=== PATIENT | female | born 1975 | race Two or more races ===

== ENCOUNTER 2021-04-15 16:11 | Emergency (ER) | payer MEDICAID ==
[~2021-04-15] VITALS: Ht 162.6 cm; Wt 92.1 kg
[2021-04-15 19:55] VITALS: BP 175/79
== END 2021-04-15 23:06 | disposition home or self-care (01) ==
LOC: ER 16:11
DX: M75.32 Calcific tendinitis of left shoulder (principal)
CPT/HCPCS: 73030; 93005

== ENCOUNTER 2021-07-10 20:48 | Emergency (ER) | payer MEDICAID ==
[~2021-07-10] VITALS: Ht 160 cm; Wt 93.0 kg
[2021-07-11] MEDS ORDERED: HYDR-4902 PO (00:06)
[2021-07-11] MEDS ORDERED: HYDROcodone-ACET 5/325MG TAB ONE (00:16)
[2021-07-11] MEDS ORDERED: HYDROcodone-ACET 5/325MG TAB PO ONE (00:30)
[2021-07-11 01:36] VITALS: BP 140/85
== END 2021-07-11 01:37 | disposition home or self-care (01) ==
LOC: ER 20:49
DX: S13.101A Dislocation of unspecified cervical vertebrae, initial encounter (principal); M43.8X9 Other specified deforming dorsopathies, site unspecified; V43.52XA Car driver injured in collision with other type car in traffic accident, initial encounter; Y93.89 Activity, other specified; Y92.410 Unspecified street and highway as the place of occurrence of the external cause; Y99.8 Other external cause status
CPT/HCPCS: 70450; 71046; 72125; 73080

== ENCOUNTER 2024-05-10 16:24 | Inpatient (IN) | payer MEDICAID ==
[~2024-05-10] VITALS: Ht 157.5 cm; Wt 90.2 kg
--- NOTE | 2024-05-10 16:51 | ED.PDOC ---
History of Present Illness HPI Comments 49 y/o F, with a Hx of HTN, morbid obesity, and C-sections and a FMHx of DM and liver disease, presents with c/o periumbilical abdominal and mid-lower back pain, nausea, vomiting, and chills, today. Patient reports unprovoked onset of symptoms, last night, that worsened, suddenly, this morning. Patient comments on having no prior Hx of symptoms in the past and pain being a 6-7/10 and radiating towards her back from her abdomen. Patient also endorses having eating anything, due to symptoms. She reports no additional relevant or pertinent Hx along with recent stress, injuries, sick contact, spoiled food, travel, or substance use/exposure. Patient denies having any hematemesis, diarrhea, urinary symptoms, fever, chills or other associated symptoms or modifiers at this time. 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 THERAPIST TECHNICIAN Hx Family History Family History: Reviewed,noncontributory to illness Social History Smoker: Non-Smoker Alcohol: Denies ETOH Use Drugs: Denies Drug Use Lives In: Home Constitutional: reports: chills; denies: diaphoresis, fatigue, fever, malaise, sweats, weakness, others EENTM: denies: blurred vision, double vision, ear bleeding, ear discharge, ear drainage, ear pain, ear ringing, eye pain, eye redness, hearing loss, mouth pain, mouth swelling, nasal discharge, nose bleeding, nose congestion, nose pain, photophobia, tearing, throat pain, throat swelling, voice changes, others Respiratory: denies: cough, hemoptysis, orthopnea, SOB at rest, shortness of breath, SOB with excertion, stridor, wheezing, others Cardiovascular: denies: chest pain, dizzy spells, diaphoresis, Dyspnea on exertion, edema, irregular heart beat, left arm pain, lightheadedness, palpitations, PND, syncope, others Gastrointestinal: reports: abdominal pain, nausea, vomiting; denies: abdomen distended, blood streaked bowels, constipated, diarrhea, dysphagia, difficulty swallowing, hematemesis, melena, poor appetite, poor fluid intake, rectal bleeding, rectal pain, others Genitourinary: denies: abnormal vagina bleeding, burning, dyspareunia, dysuria, flank pain, frequency, hematuria, incontinence, pain, , vagina discharge, urgency, others Neurological: denies: dizziness, fainting, headache, left sided numbness, left sided weakness, numbness, paresthesia, pre-existing deficit, right sided numbne ss, right sided weakness, seizure, speech problems, tingling, tremors, weakness, others Musculoskeletal: reports: back pain; denies: gout, joint pain, joint swelling, muscle pain, muscle stiffness, neck pain, others Integumetry: denies: bruises, change in color, change in hair/nails, dryness, laceration, lesions, lumps, rash, wounds, others Allergic/Immunocompromised: denies: Difficulty Healing, Frequent Infections, Hives, Itching, others Hematologic/Lymphatic: denies: anemia, blood clots, easy bleeding, easy bruising, swollen glands, others Endocrine: denies: excessive hunger, excessive sweating, excessive thirst, excessive urination, flushing, intolerance to cold, intolerance to heat, unexplained weight gain, unexplained weight loss, others Psychiatric: denies: anxiety, bipolar disorder, depression, hopeless, panic disorder, schizophrenia, sleepless, suicidal, others All Other Systems: Reviewed and Negative Physical Exam General Appearance: Moderate Distress, Obese HEENT: Normal ENT Inspection, Pharynx Normal, TMs Normal Neck: Full Range of Motion, Non-Tender, Normal, Normal Inspection Respiratory: Chest Non-Tender, Lungs Clear, No Accessory Muscle Use, No Respiratory Distress, Normal Breath Sounds Cardiovascular: No Edema, No JVD, No Murmur, No Gallop, Normal Peripheral Pulses, Regular Rate/Rhythm Breast Exam: Deferred Gastrointestinal: Epigastric, No Organomegaly, No Pulsatile Mass, Normal Bowel Sounds, Soft, Tenderness Genitalia: Deferred Pelvic: Deferred Rectal: Deferred Extremities: No calf tenderness, Normal capillary refill, Normal inspection, Normal range of motion, Non-tender, No pedal edema Musculoskeletal : Apperance: Normal Neurologic: Alert, technical service rep II-XII nml as Tested, No Motor Deficits, Normal Affect, Normal Mood, No Sensory Deficits Cerebellar Function: Normal Reflexes: Normal Skin: Dry, Normal Color, Warm Lymphatic: No Adenopathy Was a procedure done? Was a procedure done?: No Differential Dx Considerations may include: Gastritis, gastroenteritis, AAA, SBO, spoiled food, viral syndrome, acute abdomen X-Ray, Labs, Meds, VS Vital Signs Date Time Temp Pulse Resp B/P (MAP) Pulse Ox O2 Delivery O2 Flow Rate FiO2 05/10/24 16:35 99.2 115 18 144/79 (100) 95 Lab Test 05/10/24 16:41 Range/Units Urine Color Yellow Yellow Urine Clarity Clear Clear Urine pH 5.5 5.0-9.0 Urine Specific [place] 1.032 1.001-1.035 Urine Protein Trace H Negative Urine Ketones Negative Negative Urine Blood Negative Negative /uL Urine Nitrite Negative Negative Urine Bilirubin Negative Negative Urine Urobilinogen Normal Negative mg/dL Urine Leukocyte Esterase 1+ Negative /uL Urine RBC 1 0 - 4 /hpf Urine WBC 3 0 - 5 /hpf Urine Squamous Epithelial Cells Few <5 /hpf Urine Bacteria None seen None Seen /hpf Urine Mucus Few None Seen Urine Glucose Normal Normal mg/dL The urine test is positive for a slight UTI The patient was pending lab work as well as ultrasound We feel that the patient may have gallstones The patient was being signed out to Dr. Terry Images Reviewed?: Images reviewed and evaluated by me Time of 1ST Reevaluation: 17:15 Reevaluation 1ST: Unchanged Patient Education/Counseling: Diagnosis, Treatment, Prognosis Family Education/Counseling: No Family Present Departure 1 Departure Time of Disposition: 17:47 Impression: Primary Impression: Intractable abdominal pain Disposition: 30 STILL A PATIENT Condition: Fair Critical Care Note Critical Care Time?: No Stability Stability form required: No Heart Score Heart Score: Heart Score Response (Comments) Value History N/A 0 EKG N/A 0 Age N/A 0 Risk Factors N/A 0 Troponin N/A 0 Total 0 I personally scribed for AMY CARRIZALES MD ([email or web address]) on 05/10/24 at 16:51. Electronically submitted by Con Jones [email or web address]). AMY CARRIZALES MD May 10, 2024 16:51
[2024-05-10 17:01] LABS: Urine Bacteria None Seen /hpf (None Seen)
[2024-05-10 17:07] LABS: Urine Blood Negative /uL (Negative); Urine Clarity Clear (Clear); Urine Color Yellow (Yellow); Urine Mucus FEW (None Seen); Urine Protein, UAD TRACE (Negative); Urine Specific Gravity 1.032 (1.001-1.035); Urine Urobilinogen Normal (Negative); Urine WBC 3 /hpf (0 - 5); Urine pH 5.5 (5.0-9.0)
[2024-05-10 18:23] LABS: Basophils # (auto) 0 10 ^3/uL (0-0.2); Eosinophils # (auto) 0.1 10 ^3/uL (0-0.8); Hemoglobin 13.3 g/dL (12.2-16.2); Monocytes # (auto) 0.3 10 ^3/uL (0-1.3); Monocytes % (auto) 3.8 % (0.0-12.0); White Blood Cell 7.6 10^3/uL (4.4-10.8)
[2024-05-10 18:26] LABS: Basophils % (auto) 0.1 % (0.0-2.0); Hematocrit 39.3 % (36.0-46.0); Lymphocytes % (auto) 13.5 % (10.0-50.0); Mean Corpuscular Hemoglobin 27.5 pg (28.0-32.0); Mean Corpuscular Hgb Conc. 33.9 g/dL (32.0-36.0); Mean Corpuscular Volume 81.2 fL (80.0-100.0); Neutrophils # (auto) 6.2 10 ^3/uL (1.6-8.6); Neutrophils % (auto) 81.6 % (37.0-80.0); Platelet Count (auto) 248 10^3/uL (140-450); Red Blood Cells 4.84 10^6/uL (4.0-5.20); Red Cell Distribution Width 14.6 % (11.8-14.3)
--- NOTE | 2024-05-10 18:26 | DVH ---
EXAM: US GALLBLADDER CLINICAL HISTORY: pain TECHNIQUE: Grayscale and limited color flow doppler ultrasound of the right upper quadrant is perfor med. COMPARISON: None Findings: Liver measures 15.5 cm in length with increased echotexture and contour. No evidence of focal hepatic lesions or intra- or extrahepatic ductal dilatation. Focal fatty sparing adjacent to the gallbladder fossa. Common bile duct measures 0.4 cm in diameter. Normal hepatopedal flow noted within the portal vein. N o perihepatic free fluid is noted. Gallbladder appears within normal limits with gallbladder wall thickness measuring 0.2 cm. There are shadowing calculi. No evidence of biliary sludge or pericholecystic fluid. Negative sonographic Jared y's sign. Pancreas not well-visualized due to overlying bowel gas. Right kidney measures 9.2 cm with normal contours, echotexture and cortical thickness. No evidence of hydronephrosis, calculi, cystic or solid renal lesions. Partially visualized inferior vena cava unremarkable. Impression: 1. No evidence of acute right upper quadrant abnormalities. 2. Hepatic steatosis with focal fatty sparing. 3. Cholelithiasis without evidence of acute cholecystitis.
[2024-05-10 19:33] LABS: Alanine Aminotransferase 30 U/L (7-40); Albumin 4.8 g/dL (3.2-4.8); Alkaline Phosphatase 80 U/L (46-116); Anion Gap 13 (5-15); Aspartate Aminotransferase 20 U/L (13-40); BUN/Creatinine Ratio 20.5 (10.0-20.0); Bilirubin, Total 1.5 mg/dL (0.2-1.0); Blood Urea Nitrogen 15 mg/dL (9-23); Calcium 9.7 mg/dL (8.7-10.4); Carbon Dioxide 22 mmol/L (20-31); Chloride 107 mmol/L (98-107); Glucose 106 mg/dL (74-106); Lipase 31 U/L (12-53); Potassium 3.3 mmol/L (3.5-5.1); Sodium 142 mmol/L (136-145); Total Protein 7.2 g/dL (5.7-8.2)
[2024-05-10] MEDS: IOHEXOL 300 MG/ML 100ML BOTTLE IJ ONE (23:43)
[2024-05-10] MEDS: POTASSIUM EFFERVESENT TAB 25 MEQ PO ONE (23:56)
[2024-05-10] MEDS: ONDANSETRON HCL 4 MG/2 ML VIAL IV ONE (23:56)
[2024-05-10] MEDS: MORPHINE SULFATE INJ 2 MG/ml SYRG IV ONE (23:56)
[2024-05-11] VITALS (9 sets, daily range): BP systolic 107–132; BP diastolic 47–80; PULSE 60–79; RESP 16–18; TEMP 97.7–98.6; O2SAT 94–99
--- NOTE | 2024-05-11 01:12 | DVH ---
CLINICAL HISTORY: abdominal pain, back pain, elevated bilirubin TECHNIQUE: CT of the abdomen and pelvis was performed with intravenous contrast. 100 mL Omnipaque 300 injected. This exam was performed according to our departmental dose optimization program. Up-to-citlalli e CT equipment and radiation dose reduction techniques are utilized as appropriate. CTDIVol: [CTDIvol] mGy DLP: 1379.47 mGy-cm WID: COMPARISON: None FINDINGS: Lower Thorax: Small sliding-type hiatal hernia. Normal-sized heart. The lung bases are clear Liver and Biliary system: Normal-sized liver. There is diffuse hepatic steatosis. No discrete hepat ic lesion. Cholelithiasis. No biliary ductal dilatation the major portal veins are patent Spleen: Unremarkable. Adrenal Glands and Kidneys: Unremarkable. Pancreas and Retroperitoneum: Unremarkable. Aorta and Major Vessels: Aortoiliac vessels are patent and normal caliber containing mild calcified a therosclerotic plaque Bowel, Mesentery and Peritoneal space: Small and large bowel loops are normal in caliber. There are f luid containing small and large bowel loops. There is no free air or fluid collection. Mild wall thic kening of the large bowel most pronounced proximally. There is no free air or fluid collection. Yue l appendix. Pelvis: Unremarkable. Abdominal wall and Osseous Structures: Small fat containing umbilical hernia. There is no destructive osseous lesion multilevel lower thoracic and lumbar spondylosis. No destructive osseous lesion. IMPRESSION: 1. Mild wall thickening of the large bowel most pronounced proximally which could reflect infectious or inflammatory colitis. 2. Fluid-filled small and large bowel loops which may be physiologic or related to enterocolitis 3. Cholelithiasis 4. Small hiatal hernia. 5. Hepatic steatosis
[2024-05-11] MEDS ORDERED: ACETAMINOPHEN 325 MG TAB PO PRN (01:45)
[2024-05-11] MEDS ORDERED: MORPHINE SULFATE INJ 2 MG/ml SYRG IV PRN (01:45)
--- NOTE | 2024-05-11 01:46 | DVHHP2 ---
Admitting Diagnosis: Acute colitis, abdominal pain History of Present Illness History Source: Patient Exam Limitations: No limitations HPI Mrs. Kellie Silevr is a 49 year old female,with a history of hypertension, morbid obesity, and C-sections and a FMHx of DM and liver disease, presents with a chief complaint of generalized abdominal pain radiating to mid- lower back pain, with associated nausea, vomiting, and chills. Patient reports her symptoms with onset x 3 days ago with diarrhea. Patient denies fevers, chills, melena, hematochezia. Patient admitted for further evaluation. Home Meds Reported Medications Hydrochlorothiazide (Hydrochlorothiazide) 12.5 Mg Tab, 1 TAB PO DAILY 05/11/24 Past Medical History Cardiac: HTN Pulmonary: No pertinent Hx Central Nervous System: No pertinent Hx GI: No pertinent Hx Hemotology/Oncology: No pertinent Hx Hepatobiliary: No pertinent Hx Psychiatric: No pertinent Hx Musculoskeletal: No pertinent Hx Rheumotologic: No pertinent Hx Infectious Disease: No peritnent Hx ENT: No pertinent Hx Renal/: No pertinent Hx Endocrine: No pertinent Hx Dermatology: No pertinent Hx Past Surgical History: Alocohol: None Drugs: None Lives with: With family Domestic Violence: Neg Review of Systems Constitutional: No symptom reported Ears, Nose, & Throat: No symptom reported Eyes: No symptom reported Pulmonary/Respiratory: No symptom reported Cardiovascular: No symptom reported Gastrointestinal: Abdominal Pain Genitourinary: No symptom reported Musculoskeletal: No symptom reported Skin: No symptom reported Psychiatric: No symptom reported Endocrine: No symptom reported Hemotologic/Lymphatic: No symptom reported H&P Exam Vital Signs Vital Signs Date Time Temp Pulse Resp B/P (MAP) Pulse Ox O2 Delivery O2 Flow Rate FiO2 05/10/24 23:56 78 18 105/75 05/10/24 16:35 99.2 95 General Appeara: Well developed, Well nourished, Normal Appearance Head Exam: Normal inspection Neck Exam: Normal inspection, Non-tender, Normal alignment Eye Exam: bilateral eye Normal inspection, bilateral eye PERRL, bilateral eye EOMI Ear Exam: bilateral ear Auricle normal Nasal Exam: Normal inspection Mouth: Normal Inspection Pulmonary/Respiratory: Normal inspection, Normal breath sounds, Chest non-tender, Lungs clear Cardiovascular/Chest: Normal inspection, Regular rate, Normal Rhythm Peripheral Pulses: 2+ dorsalis pedis (R), 2+ dorsalis pedis (L), 2+ Radial (R), 2+ Radial (L) Abdominal Exam: Normal bowel sounds, Soft, No tenderness Abdominal Pain Onset Location: Generalized abdomen Rectal Exam: Deferred Pelvic Exam: Not done 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: Normal hearing, Normal speech, PERRL Motor/Sensory: Normal sensory function, Normal motor function Neuro/Mental St: Alert, Oriented Appearance: Appropriate appearance, Appropriate insight Eye contact/ Speech: Cooperative, Good eye contact, Normal speech Thoughts/Psych: Normal thought pattern Skin Exam: Normal color, Warm/dry Labs/Xrays Labs Test 05/10/24 17:47 05/10/24 16:41 Range/Units White Blood Count 7.6 4.4-10.8 10^3/uL Red Blood Count 4.84 4.0-5.20 10^6/uL Hemoglobin 13.3 12.2-16.2 g/dL Hematocrit 39.3 36.0-46.0 % Mean Corpuscular Volume 81.2 80.0-100.0 fL Mean Corpuscular Hemoglobin 27.5 L 28.0-32.0 pg Mean Corpuscular Hemoglobin Concent 33.9 32.0-36.0 g/dL Red Cell Distribution Width 14.6 H 11.8-14.3 % Platelet Count 248 140-450 10^3/uL Mean Platelet Volume 6.8 L 6.9-10.8 fL Neutrophils (%) (Auto) 81.6 H 37.0-80.0 % Lymphocytes (%) (Auto) 13.5 10.0-50.0 % Monocytes (%) (Auto) 3.8 0.0-12.0 % Eosinophils (%) (Auto) 1.0 0.0-7.0 % Basophils (%) (Auto) 0.1 0.0-2.0 % Neutrophils # (Auto) 6.2 1.6-8.6 10 ^3/uL Lymphocytes # (Auto) 1.0 0.4-5.4 10 ^3/uL Monocytes # (Auto) 0.3 0-1.3 10 ^3/uL Eosinophils # (Auto) 0.1 0-0.8 10 ^3/uL Basophils # (Auto) 0 0-0.2 10 ^3/uL Nucleated Red Blood Cells 0.0 % Sodium Level 142 136-145 mmol/L Potassium Level 3.3 L 3.5-5.1 mmol/L Chloride Level 107 98-107 mmol/L Carbon Dioxide Level 22 20-31 mmol/L Anion Gap 13 5-15 Blood Urea Nitrogen 15 9-23 mg/dL Creatinine 0.73 0.550-1.02 mg/dL Glomerular Filtration Rate Calc 100 >90 mL/min BUN/Creatinine Ratio 20.5 H 10.0-20.0 Serum Glucose 106 74-106 mg/dL Calcium Level 9.7 8.7-10.4 mg/dL Total Bilirubin 1.5 H 0.2-1.0 mg/dL Aspartate Amino Transferase (AST) 20 13-40 U/L Alanine Aminotransferase (ALT) 30 7-40 U/L Alkaline Phosphatase 80 46-116 U/L Total Protein 7.2 5.7-8.2 g/dL Albumin 4.8 3.2-4.8 g/dL Lipase 31 12-53 U/L Urine Color Yellow Yellow Urine Clarity Clear Clear Urine pH 5.5 5.0-9.0 Urine Specific [place] 1.032 1.001-1.035 Urine Protein Trace H Negative Urine Ketones Negative Negative Urine Blood Negative Negative /uL Urine Nitrite Negative Negative Urine Bilirubin Negative Negative Urine Urobilinogen Normal Negative mg/dL Urine Leukocyte Esterase 1+ Negative /uL Urine RBC 1 0 - 4 /hpf Urine WBC 3 0 - 5 /hpf Urine Squamous Epithelial Cells Few <5 /hpf Urine Bacteria None seen None Seen /hpf Urine Mucus Few None Seen Urine Glucose Normal Normal mg/dL Assessment/Plan Problem List: (1) Acute colitis (2) Intractable abdominal pain Plan 49 yo female with known history of hypertension, morbid obesity, c section presents with abdominal pain, nausea, vomiting. Patient found to have 1. acute enterocolitis 2. intractable abdominal pain Admit Med Surg -GI consultation , clear liquid diet -IV antibiotic Flagyl, Levaquin -GI ppx Protonix -IV fluids NS -Analgesics as needed/antiemetics as needed Discussed all above with patient who verbalizes agreement and understanding of care plan. All questions were answered. Discussed assessment and care plan with supervising MD . Plan discussed with: Patient, Other Code Visit Code Visit Total Time (mins): 45 Additional Comments Additional Comments Additional Comments Patient's chart is reviewed. Patient is seen evaluated and admitted by nurse practitioner early this morning. I agree with the nurse practitioner's evaluation, documentation, assessment and care plan as outlined. IVA PETERSEN May 11, 2024 01:46 RAYRAY WARREN MD May 11, 2024 18:13
[2024-05-11] MEDS ORDERED: HYDR12.55 PO (02:41)
[2024-05-11] MEDS: SODIUM CHLORIDE 0.9% 1,000 ML IV SCH (02:48)
[2024-05-11] MEDS: metroNIDAZOLE 500MG/100ML 100 ML IV SCH (05:24)
[2024-05-11 05:27] LABS: Chloride 106 mmol/L (98-107); Potassium 3.2 mmol/L (3.5-5.1); Sodium 141 mmol/L (136-145)
[2024-05-11 05:28] LABS: Anion Gap 9 (5-15); Calcium 9.4 mg/dL (8.7-10.4); Carbon Dioxide 26 mmol/L (20-31)
[2024-05-11 05:33] LABS: Glucose 113 mg/dL (74-106)
[2024-05-11 05:34] LABS: BUN/Creatinine Ratio 20.6 (10.0-20.0); Blood Urea Nitrogen 14 mg/dL (9-23); Magnesium 2.2 mg/dL (1.6-2.6)
[2024-05-11] MEDS: PANTOPRAZOLE 40 MG/10 ML VIAL INJ IV SCH (09:39)
[2024-05-11] MEDS: levoFLOXacin 500MG 100 ML IV SCH (09:39)
[2024-05-11] MEDS: ONDANSETRON HCL 4 MG/2 ML VIAL IV PRN (09:40)
[2024-05-11] MEDS: HYDROcodone-ACET 5/325MG TAB PO PRN (09:40)
[2024-05-11] MEDS: POTASSIUM EFFERVESENT TAB 25 MEQ PO ONE (20:00)
[2024-05-12] VITALS (8 sets, daily range): BP systolic 121–154; BP diastolic 64–89; PULSE 64–83; RESP 15–95; TEMP 97.6–98.6; O2SAT 93–100
[2024-05-12 05:41] LABS: Basophils # (auto) 0 10 ^3/uL (0-0.2); Basophils % (auto) 0.3 % (0.0-2.0); Eosinophils # (auto) 0.1 10 ^3/uL (0-0.8); Eosinophils % (auto) 1.2 % (0.0-7.0); Hematocrit 34.9 % (36.0-46.0); Hemoglobin 11.7 g/dL (12.2-16.2); Lymphocytes # (auto) 1.4 10 ^3/uL (0.4-5.4); Lymphocytes % (auto) 24.8 % (10.0-50.0); Mean Corpuscular Hemoglobin 27.6 pg (28.0-32.0); Mean Corpuscular Hgb Conc. 33.6 g/dL (32.0-36.0); Mean Corpuscular Volume 82.2 fL (80.0-100.0); Monocytes # (auto) 0.4 10 ^3/uL (0-1.3); Monocytes % (auto) 7.7 % (0.0-12.0); Neutrophils # (auto) 3.7 10 ^3/uL (1.6-8.6); Platelet Count (auto) 190 10^3/uL (140-450); Red Blood Cells 4.25 10^6/uL (4.0-5.20); Red Cell Distribution Width 14.5 % (11.8-14.3); White Blood Cell 5.6 10^3/uL (4.4-10.8)
[2024-05-12 06:09] LABS: Alanine Aminotransferase 28 U/L (7-40); Albumin 3.9 g/dL (3.2-4.8); Alkaline Phosphatase 63 U/L (46-116); Anion Gap 9 (5-15); Aspartate Aminotransferase 18 U/L (13-40); BUN/Creatinine Ratio 11.8 (10.0-20.0); Calcium 9.3 mg/dL (8.7-10.4); Carbon Dioxide 27 mmol/L (20-31); Glucose 91 mg/dL (74-106); Magnesium 2.1 mg/dL (1.6-2.6); Potassium 3.6 mmol/L (3.5-5.1); Sodium 145 mmol/L (136-145)
[2024-05-12 06:10] LABS: Bilirubin, Total 0.8 mg/dL (0.2-1.0); Total Protein 6.1 g/dL (5.7-8.2)
[2024-05-12 06:44] LABS: Blood Urea Nitrogen 8 mg/dL (9-23); Chloride 109 mmol/L (98-107)
[2024-05-12] MEDS: POTASSIUM EFFERVESENT TAB 25 MEQ PO SCH (08:39)
[2024-05-12] MEDS: ENOXAPARIN SOD 40 MG/0.4 ML SYRINGE SC SCH (10:26)
--- NOTE | 2024-05-12 10:29 | DVHPN2 ---
Progress Note - Dictate Date Seen: May 12, 2024 Medical Necessity Reason Pt with a Central, PICC or Fol: No Subjective Patient is seen and evaluated along with the nurse at bedside. She feels better. Slight nausea. Tolerating liquid diet. Abdominal pain improved. Waiting for GI consultation/evaluation. Patient apparently refer to see beauty counselor outpatient by her PCP in the next 1-2 months for routine screening colonoscopy. vital signs Vital Sign Date Time Temp Pulse Resp B/P (MAP) Pulse Ox O2 Delivery O2 Flow Rate FiO2 05/12/24 08:56 97.8 79 15 128/76 (93) 96 97.8 05/11/24 20:00 Room Air* 0 21 Total Intake and Output 05/11/24 05/11/24 05/12/24 15:00 23:00 07:00 Intake Total 940 ml 750 ml Balance 940 ml 750 ml medications Current Medications Medications Dose Ordered Sig/Mikey Route Start Time Stop Time Status Last Admin Dose Admin Levofloxacin/ Dextrose 100 ml @ 100 mls/hr DAILY IV 05/11/24 10:00 05/12/24 08:43 100 MLS/HR Metronidazole 100 ml @ 100 mls/hr Q8HR IV 05/11/24 06:00 05/12/24 05:58 100 MLS/HR Sodium Chloride 1,000 ml @ 100 mls/hr Q10H IV 05/11/24 01:45 05/11/24 21:33 100 MLS/HR Ondansetron HCl 4 mg Q6HPRN PRN IV 05/11/24 01:45 05/11/24 09:40 4 MG Morphine Sulfate 2 mg Q6HP PRN IV 05/11/24 01:45 Pantoprazole Sodium 40 mg DAILY IV 05/11/24 10:00 05/12/24 08:38 40 MG Acetaminophen/ Hydrocodone Bitart 1 tab Q6HPRN PRN PO 05/11/24 01:45 05/12/24 02:34 1 TAB Acetaminophen 650 mg Q6HPRN PRN PO 05/11/24 01:45 Potassium Bicarbonate 50 meq BID PO 05/12/24 10:00 05/12/24 08:39 50 MEQ Enoxaparin Sodium 40 mg DAILY SC 05/12/24 10:00 objective Alert awake oriented x3. HEENT neck supple no JVD. Heart regular rate and rhythm S1 and S2. Lungs fair air movement without rales wheezes. Abdomen soft nontender nondistended positive bowel sounds. Extremities no edema positive pulses. laboratory and microbiology Laboratory Tests 05/12/24 05:18 Test 05/12/24 05:18 Range/Units Serum Glucose 91 74-106 mg/dL Assessment/Plan Continue liquid diet and current antibiotics as she is on. Pain and nausea medications as needed. Encouraged activity and ambulation. Continue rest of supportive care and treatment. Her follow clinical management per clinical course and recommendations from the pending GI evaluation. Discussed with the nurse as well as patient regarding care plan at bedside. Problems(with codes): (1) Acute colitis Plan discussed with: Other RAYRAY WARREN MD May 12, 2024 10:29
--- NOTE | 2024-05-12 17:22 | DVHINCON2 ---
Date of service: May 11, 2024 History of Present Illness 49 y/o F pt admitted with abd pain. Family bedside. She reports eating pork prior, having abd pain associated with diarrhea and nause. No GIB. Spouse ate th e same food, no sx. Never had colonoscopy Past Medical History Reviewed Past Surgical History Reviewed Family History: Diabetes mellitus G8 FATHER FHx: liver disease G8 MOTHER, Allergies: Coded Allergies: NO KNOWN ALLERGIES (Unverified , 04/15/21) Home Meds Reported Medications Hydrochlorothiazide (Hydrochlorothiazide) 12.5 Mg Tab, 1 TAB PO DAILY 05/11/24 Current Medications Current Medications Medications (Trade) Dose Ordered Sig/Mikey Route PRN Reason Start Time Stop Time Status Last Admin Potassium Bicarbonate (Klor-Con/Ef) 50 meq BID PO 05/12/24 10:00 05/12/24 08:39 Enoxaparin Sodium (Lovenox) 40 mg DAILY SC 05/12/24 10:00 05/12/24 10:26 Review of Systems 14 point ROS neg except mentioned above Vital Signs Vital Signs Date Time Temp Pulse Resp B/P (MAP) Pulse Ox O2 Delivery O2 Flow Rate FiO2 05/12/24 13:00 98.1 73 95 121/64 (83) 95 98.1 05/12/24 08:00 Room Air* 0 21 Physical Exam GE in no distress CVS S1S2+ Lungs clear Abdomen: soft, nondistnded, tender, BS+ Labs/Diagnostic Data Labs Test 05/12/24 05:18 05/10/24 17:47 05/10/24 16:41 Range/Units White Blood Count 5.6 # 4.4-10.8 10^3/uL Red Blood Count 4.25 4.0-5.20 10^6/uL Hemoglobin 11.7 L 12.2-16.2 g/dL Hematocrit 34.9 #L 36.0-46.0 % Mean Corpuscular Volume 82.2 80.0-100.0 fL Mean Corpuscular Hemoglobin 27.6 L 28.0-32.0 pg Mean Corpuscular Hemoglobin Concent 33.6 32.0-36.0 g/dL Red Cell Distribution Width 14.5 H 11.8-14.3 % Platelet Count 190 140-450 10^3/uL Mean Platelet Volume 6.5 L 6.9-10.8 fL Neutrophils (%) (Auto) 66.0 37.0-80.0 % Lymphocytes (%) (Auto) 24.8 10.0-50.0 % Monocytes (%) (Auto) 7.7 0.0-12.0 % Eosinophils (%) (Auto) 1.2 0.0-7.0 % Basophils (%) (Auto) 0.3 0.0-2.0 % Neutrophils # (Auto) 3.7 1.6-8.6 10 ^3/uL Lymphocytes # (Auto) 1.4 0.4-5.4 10 ^3/uL Monocytes # (Auto) 0.4 0-1.3 10 ^3/uL Eosinophils # (Auto) 0.1 0-0.8 10 ^3/uL Basophils # (Auto) 0 0-0.2 10 ^3/uL Nucleated Red Blood Cells 0.0 % Sodium Level 145 136-145 mmol/L Potassium Level 3.6 3.5-5.1 mmol/L Chloride Level 109 H 98-107 mmol/L Carbon Dioxide Level 27 20-31 mmol/L Anion Gap 9 5-15 Blood Urea Nitrogen 8 L 9-23 mg/dL Creatinine 0.68 0.550-1.02 mg/dL Glomerular Filtration Rate Calc 105 >90 mL/min BUN/Creatinine Ratio 11.8 10.0-20.0 Serum Glucose 91 74-106 mg/dL Calcium Level 9.3 8.7-10.4 mg/dL Magnesium Level 2.1 1.6-2.6 mg/dL Total Bilirubin 0.8 0.2-1.0 mg/dL Aspartate Amino Transferase (AST) 18 13-40 U/L Alanine Aminotransferase (ALT) 28 7-40 U/L Alkaline Phosphatase 63 46-116 U/L Total Protein 6.1 5.7-8.2 g/dL Albumin 3.9 3.2-4.8 g/dL Lipase 31 12-53 U/L Urine Color Yellow Yellow Urine Clarity Clear Clear Urine pH 5.5 5.0-9.0 Urine Specific [place] 1.032 1.001-1.035 Urine Protein Trace H Negative Urine Ketones Negative Negative Urine Blood Negative Negative /uL Urine Nitrite Negative Negative Urine Bilirubin Negative Negative Urine Urobilinogen Normal Negative mg/dL Urine Leukocyte Esterase 1+ Negative /uL Urine RBC 1 0 - 4 /hpf Urine WBC 3 0 - 5 /hpf Urine Squamous Epithelial Cells Few <5 /hpf Urine Bacteria None seen None Seen /hpf Urine Mucus Few None Seen Urine Glucose Normal Normal mg/dL Assessment #Diarrhea, abd pain, N/V, likely 2/2 acute GE #Likely Infectious colitis #Choelithiasis #MAFLD -Check C diff if sx persist -IV abx. Monitor clinical course -Advance diet as tolerated. -Colonoscopy as out pt for screening. -No clinical evidence of acute cholecystitis or biliary colic -Care plan discussed with pt and family bedside Thank you for the consult Plan discussed with: Patient, Spouse, Daughter IRAIDA ALMAZAN MD May 12, 2024 17:22
[2024-05-13 01:00] VITALS: BP 129/74; PULSE 76; RESP 18; TEMP 97.7; O2SAT 97
[2024-05-13 05:00] VITALS: BP 139/85; PULSE 74; RESP 18; TEMP 97.8; O2SAT 99
[2024-05-13 06:21] LABS: Basophils # (auto) 0 10 ^3/uL (0-0.2); Basophils % (auto) 0.8 % (0.0-2.0); Eosinophils # (auto) 0.1 10 ^3/uL (0-0.8); Eosinophils % (auto) 2.9 % (0.0-7.0); Hematocrit 36.3 % (36.0-46.0); Lymphocytes # (auto) 1.4 10 ^3/uL (0.4-5.4); Lymphocytes % (auto) 31.3 % (10.0-50.0); Mean Corpuscular Hemoglobin 27.2 pg (28.0-32.0); Mean Corpuscular Hgb Conc. 33.2 g/dL (32.0-36.0); Mean Corpuscular Volume 82.2 fL (80.0-100.0); Monocytes # (auto) 0.4 10 ^3/uL (0-1.3); Monocytes % (auto) 8.1 % (0.0-12.0); Neutrophils # (auto) 2.6 10 ^3/uL (1.6-8.6); Neutrophils % (auto) 56.9 % (37.0-80.0); Nucleated Red Blood Cells % 0.2 %; Platelet Count (auto) 200 10^3/uL (140-450); Red Blood Cells 4.41 10^6/uL (4.0-5.20); Red Cell Distribution Width 14.2 % (11.8-14.3); White Blood Cell 4.5 10^3/uL (4.4-10.8)
[2024-05-13 06:52] LABS: Anion Gap 8 (5-15); Calcium 9.5 mg/dL (8.7-10.4); Carbon Dioxide 26 mmol/L (20-31); Potassium 3.6 mmol/L (3.5-5.1); Sodium 144 mmol/L (136-145)
[2024-05-13 06:58] LABS: Chloride 110 mmol/L (98-107); Glucose 94 mg/dL (74-106)
[2024-05-13 07:06] LABS: BUN/Creatinine Ratio 7.8 (10.0-20.0); Blood Urea Nitrogen < 5 mg/dL (9-23)
[2024-05-13 09:00] VITALS: BP 138/87; PULSE 70; RESP 14; TEMP 99.3; O2SAT 97
[2024-05-13] MEDS ORDERED: PANT40TA57 PO (12:33)
[2024-05-13] MEDS ORDERED: METR-344 PO (12:33)
[2024-05-13] MEDS ORDERED: CEFD300C2 PO (12:33)
--- NOTE | 2024-05-13 12:35 | DVHDS2 ---
Discharge Summary Date of Admission May 11, 2024 at 01:41 Date of Discharge: May 13, 2024 Admitting Diagnosis Abdominal pain Labs/Diagnostic Data: Laboratory Results Test 05/13/24 05:33 05/12/24 05:18 05/10/24 17:47 05/10/24 16:41 White Blood Count 4.5 10^3/uL (4.4-10.8) Red Blood Count 4.41 10^6/uL (4.0-5.20) Hemoglobin 12.0 g/dL (12.2-16.2) Hematocrit 36.3 % (36.0-46.0) Mean Corpuscular Volume 82.2 fL (80.0-100.0) Mean Corpuscular Hemoglobin 27.2 pg (28.0-32.0) Mean Corpuscular Hemoglobin Concent 33.2 g/dL (32.0-36.0) Red Cell Distribution Width 14.2 % (11.8-14.3) Platelet Count 200 10^3/uL (140-450) Mean Platelet Volume 6.7 fL (6.9-10.8) Neutrophils (%) (Auto) 56.9 % (37.0-80.0) Lymphocytes (%) (Auto) 31.3 % (10.0-50.0) Monocytes (%) (Auto) 8.1 % (0.0-12.0) Eosinophils (%) (Auto) 2.9 % (0.0-7.0) Basophils (%) (Auto) 0.8 % (0.0-2.0) Neutrophils # (Auto) 2.6 10 ^3/uL (1.6-8.6) Lymphocytes # (Auto) 1.4 10 ^3/uL (0.4-5.4) Monocytes # (Auto) 0.4 10 ^3/uL (0-1.3) Eosinophils # (Auto) 0.1 10 ^3/uL (0-0.8) Basophils # (Auto) 0 10 ^3/uL (0-0.2) Nucleated Red Blood Cells 0.2 % Sodium Level 144 mmol/L (136-145) Potassium Level 3.6 mmol/L (3.5-5.1) Chloride Level 110 mmol/L (98-107) Carbon Dioxide Level 26 mmol/L (20-31) Anion Gap 8 (5-15) Blood Urea Nitrogen < 5 mg/dL (9-23) Creatinine 0.64 mg/dL (0.550-1.02) Glomerular Filtration Rate Calc 107 mL/min (>90) BUN/Creatinine Ratio 7.8 (10.0-20.0) Serum Glucose 94 mg/dL (74-106) Calcium Level 9.5 mg/dL (8.7-10.4) Magnesium Level 2.1 mg/dL (1.6-2.6) Total Bilirubin 0.8 mg/dL (0.2-1.0) Aspartate Amino Transferase (AST) 18 U/L (13-40) Alanine Aminotransferase (ALT) 28 U/L (7-40) Alkaline Phosphatase 63 U/L (46-116) Total Protein 6.1 g/dL (5.7-8.2) Albumin 3.9 g/dL (3.2-4.8) Lipase 31 U/L (12-53) Urine Color Yellow (Yellow) Urine Clarity Clear (Clear) Urine pH 5.5 (5.0-9.0) Urine Specific [place] 1.032 (1.001-1.035) Urine Protein Trace (Negative) Urine Ketones Negative (Negative) Urine Blood Negative /uL (Negative) Urine Nitrite Negative (Negative) Urine Bilirubin Negative (Negative) Urine Urobilinogen Normal mg/dL (Negative) Urine Leukocyte Esterase 1+ /uL (Negative) Urine RBC 1 /hpf (0 - 4) Urine WBC 3 /hpf (0 - 5) Urine Squamous Epithelial Cells Few /hpf (<5) Urine Bacteria None seen /hpf (None Seen) Urine Mucus Few (None Seen) Urine Glucose Normal mg/dL (Normal) Other Laboratory Tests 05/13/24 05:33 Brief Hx & Hospital Course: Mrs. Kellie Silver is a 49 year old female,with a history of hypertension, morbid obesity, and C-sections and a FMHx of DM and liver disease, presents with a chief complaint of generalized abdominal pain radiating to mid- lower back pain, with associated nausea, vomiting, and chills. Patient reports her symptoms with onset x 3 days ago with diarrhea. Patient denies fevers, chills, melena, hematochezia. Patient admitted for further evaluation. She is admitted and treated for colitis with the antibiotics pain medications supportive care and treatment. She was evaluated by freelance writer recommended antibiotic treatment and outpatient follow up for gastroenteritis/colitis. Patient already has follow up with primary care physician and gastro group for apparent elective screening colonoscopy incoming month or two months. I have advised the patient to follow up and have colonoscopy done after one month. Meantime patient advised to finish the antibiotic she was prescribed. While in the hospital patient's symptoms resolved. Her diet is advanced and she was tolerating soft diet without any nausea vomiting or significant discomfort. Therefore it is felt she can be safely discharged home. Patient verbalized understanding over hospital diagnosis, treatment she received, discharge medications and agree with the discharge follow-up plan of care. Consults/Reason for consult CONSULTATION REPORT . ................................................................................ ............................................................................... Date of service: May 11, 2024 History of Present Illness 49 y/o F pt admitted with abd pain. Family bedside. She reports eating pork prior, having abd pain associated with diarrhea and nause. No GIB. Spouse ate the same food, no sx. Never had colonoscopy. Assessment #Diarrhea, abd pain, N/V, likely 2/2 acute GE #Likely Infectious colitis #Choelithiasis #MAFLD -Check C diff if sx persist -IV abx. Monitor clinical course -Advance diet as tolerated. -Colonoscopy as out pt for screening. -No clinical evidence of acute cholecystitis or biliary colic -Care plan discussed with pt and family bedside Thank you for the consult Plan discussed with: Patient, Spouse, Daughter IRAIDA ALMAZAN MD Condition at Discharge: Stable Final Diagnosis/Problems List acute colitis/gastroenteritis Discharge Disposition: Home Discharge Instruct/Medications Diet: Consistent carbohydrate, Cardiac 2g Na,low cholest Activity: No Restrictions, As Tolerated Follow Up/Referral: PCP next week and [facility] for colonoscopy 4 weeks Medications: as prescribed and home medications New Medications: Cefdinir (Cefdinir) 300 Mg Cap 1 CAP PO BID, #10 CAP Metronidazole (Flagyl) 500 Mg Tab 1 TAB PO BID, #10 TAB Pantoprazole Sodium Sesquihydr (Pantoprazole Sodium Dr) 40 Mg Tab 40 MG PO DAILY, #30 TAB Continued Medications: Hydrochlorothiazide (Hydrochlorothiazide) 12.5 Mg Tab 1 TAB PO DAILY Discharge Statement: "Patient was advised to return to the ER or call 911 if any headaches, dizziness, shortness of breath, chest pain, abdominal pain, bleeding, fevers, or worsening of medical condition. Patient was counseled about treatment plan, medications, possible side effects, patientverbalized understanding. All questions were answered to the best of my ability. This discharge took greater then 30 minutes in planning, reviewing documentation, counseling the patient, and discussing with other team members." ASSESSMENT ASSESSMENT Assessment acute colitis RAYRAY WARREN MD May 13, 2024 12:35
[2024-05-13 13:00] VITALS: BP 144/89; PULSE 84; RESP 16; TEMP 98.3; O2SAT 96
[2024-05-13 13:46] VITALS: TEMP 36.8
== END 2024-05-13 16:15 | disposition home or self-care (01) | DRG 249 ==
LOC: ER 16:24 → OVERFLOW 05-11 01:41 → EAST 05-11 16:33
PROVIDERS: ADMIT Nurse Practitioner Family; ATTEND Internal Medicine
DX: A09 Infectious gastroenteritis and colitis, unspecified (principal); K80.20 Calculus of gallbladder without cholecystitis without obstruction; I10 Essential (primary) hypertension; Z83.3 Family history of diabetes mellitus; Z79.899 Other long term (current) drug therapy
CPT/HCPCS: 36415; 76705; 80048; 80053; 81001; 83690; 83735; 85025; G0378; J1956; J2405; J2470; J3490

== ENCOUNTER 2024-09-28 19:07 | Emergency (ER) | payer MEDICAID ==
[~2024-09-28] VITALS: Ht 157.5 cm; Wt 76.4 kg
[~2024-09-28 19:07] MED LIST: CEFD300C2 PO; HYDR12.55 PO; METR-344 PO; PANT40TA57 PO
[2024-09-28 20:16] LABS: Basophils # (auto) 0 10 ^3/uL (0-0.2); Basophils % (auto) 0.8 % (0.0-2.0); Eosinophils # (auto) 0.1 10 ^3/uL (0-0.8); Eosinophils % (auto) 1.9 % (0.0-7.0); Hematocrit 37.6 % (36.0-46.0); Hemoglobin 12.9 g/dL (12.2-16.2); Lymphocytes # (auto) 2.3 10 ^3/uL (0.4-5.4); Lymphocytes % (auto) 44.3 % (10.0-50.0); Mean Corpuscular Hemoglobin 27.6 pg (28.0-32.0); Mean Corpuscular Hgb Conc. 34.2 g/dL (32.0-36.0); Mean Corpuscular Volume 80.7 fL (80.0-100.0); Monocytes # (auto) 0.3 10 ^3/uL (0-1.3); Monocytes % (auto) 5.7 % (0.0-12.0); Neutrophils # (auto) 2.4 10 ^3/uL (1.6-8.6); Neutrophils % (auto) 47.3 % (37.0-80.0); Nucleated Red Blood Cells % 0.1 %; Platelet Count (auto) 189 10^3/uL (140-450); Red Blood Cells 4.66 10^6/uL (4.0-5.20); White Blood Cell 5.1 10^3/uL (4.4-10.8)
[2024-09-28 20:34] LABS: Alanine Aminotransferase 35 U/L (7-40); Albumin 4.7 g/dL (3.2-4.8); Alkaline Phosphatase 71 U/L (46-116); Anion Gap 11 (5-15); Aspartate Aminotransferase 21 U/L (13-40); BUN/Creatinine Ratio 15.3 (10.0-20.0); Blood Urea Nitrogen 9 mg/dL (9-23); Calcium 10.1 mg/dL (8.7-10.4); Carbon Dioxide 24 mmol/L (20-31); Glucose 91 mg/dL (74-106); Lipase 36 U/L (12-53); Potassium 3.5 mmol/L (3.5-5.1); Sodium 142 mmol/L (136-145); Total Protein 7.1 g/dL (5.7-8.2)
[2024-09-28 20:35] LABS: Bilirubin, Total 1.5 mg/dL (0.2-1.0); Chloride 107 mmol/L (98-107)
--- NOTE | 2024-09-28 20:43 | DVH ---
EXAM: CT CT AB PEL WO CON-NO ORAL OR IV INDICATION: upper abd pain rad to R flank/back, umbilical discharge TECHNIQUE: Volumetric multidetector CT images of the abdomen and pelvis were obtained without contras t. All CT scans at this facility use dose modulation, iterative reconstruction, and/or weight based d osing when appropriate to reduce radiation dose to as low as reasonably achievable. COMPARISON: None FINDINGS: LOWER CHEST: The partially visualized lung bases are clear without a pleural effusion. The cardiac si ze is normal without pericardial effusion. Small amount of cystic lung change located within the post erior basilar right lower lobe. LIVER: Normal hepatic size without suspicious focal lesion. GALLBLADDER AND BILIARY TREE: Surgically absent. SPLEEN: Unremarkable. PANCREAS: Unremarkable. ADRENAL GLANDS: Unremarkable KIDNEYS: No hydronephrosis. No nephroureterolithiasis. No suspicious focal lesion. BLADDER: Unremarkable for the degree distention. REPRODUCTIVE ORGANS: Retroverted uterus. BOWEL/MESENTERY: Stomach is normal. No CT evidence of bowel obstruction. Mihj-ia-sjvbygzh stool burde n. Medialization of the cecum. ASCITES: Absent LYMPHADENOPATHY: No pathologically enlarged lymph nodes by CT size criteria VASCULATURE: No aneurysmal dilatation. ABDOMINAL WALL: Inflammatory stranding at the level of the umbilicus without drainable fluid collecti on and imaging findings may be compatible with soft tissue infection at the level of the umbilicus. MUSCULOSKELETAL: No acute fracture or aggressive focal osseous lesion. Multifocal degenerative change of the visualized spine. IMPRESSION: 1. Inflammatory stranding at the level of the umbilicus without drainable fluid collection and imagin g findings may be compatible with soft tissue infection. HS:Y
[2024-09-28] MEDS ORDERED: CLINDAMYCIN 900MG IV 50 ML IV ONE (21:45)
--- NOTE | 2024-09-28 21:49 | ED.PDOC ---
GI ASSESSMENT HPI Comments 49-year-old female brought in by family complaining of epigastric pain radiating to the right flank and back, onset yesterday, associated with chills and subjective fever. Patient also reports diarrhea yesterday and nausea today. She states she underwent cholecystectomy on 08/24/2024. She notes that she has had some yellow discharge from the wound at her umbilicus. She denies any dysuria or vomiting. Chief Complaint: Abdominal Pain Time Seen by MD: 19:18 Primary Care Provider: Dr. Soliz Allergies: Coded Allergies: NO KNOWN ALLERGIES (Unverified , 04/15/21) Home Meds Active Scripts Ondansetron Odt 4MG Tab (ZOFRAN PO) 4 Mg Tb, 4 MG PO TID PRN, #30 TAB prn n/v ODT TAB-DISSOLVE IN MOUTH, THEN SWALLOW Prov:WERNER DEVRIES MD 09/29/24 Hydrocodone-Acetaminophen (Hydrocodone Bitartrate/AC 5-325 mg) 1 Tab Tab, 1 TAB PO Q6HP PRN, #20 TAB prn pain Prov:WERNER EDVRIES MD 09/29/24 Sulfamethoxazole W/Trimethopri (Bactrim Ds Tablet) 1 Tab Tb, 1 TAB PO BID for 10 Days, #20 TAB Prov:WERNER DEVRIES MD 09/29/24 Cephalexin Monohydrate (Cephalexin) 500 Mg Cap, 1 CAP PO QID for 10 Days, #40 CAP Prov:WERNER DEVRIES MD 09/29/24 Pantoprazole Sodium Sesquihydr (Pantoprazole Sodium Dr) 40 Mg Tab, 40 MG PO DAILY, #30 TAB Prov:RAYRAY WARREN MD 05/13/24 Metronidazole (Flagyl) 500 Mg Tab, 1 TAB PO BID, #10 TAB Prov:RAYRAY WARREN MD 05/13/24 Cefdinir (Cefdinir) 300 Mg Cap, 1 CAP PO BID, #10 CAP Prov:RAYRAY WARREN MD 05/13/24 Reported Medications Hydrochlorothiazide (Hydrochlorothiazide) 12.5 Mg Tab, 1 TAB PO DAILY 05/11/24 Mode of Arrival: Ambulatory Past Medical History PAST MEDICAL HISTORY: HTN Past Medical History (Other): Prediabetes Surgical History: Cholecystectomy LINOTYPE OPERATOR 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 Moist mucous membranes.) Neck: Full Range of Motion, Normal Inspection Respiratory: Lungs Clear, No Accessory Muscle Use, No Respiratory Distress, Normal Breath Sounds Cardiovascular: No Edema, No JVD, Regular Rate/Rhythm Breast Exam: Deferred Gastrointestinal: Epigastric, RUQ, Soft, Tenderness (Umbilical) Genitalia: Deferred Pelvic: Deferred Rectal: Deferred Extremities: Normal inspection, Normal range of motion, Non-tender, No pedal edema Neurologic: Alert (Oriented x4), Normal Affect, Normal Mood, Other (Ambulatory without difficulty) Cerebellar Function: NOT DONE Reflexes: NOT DONE Skin: Dry, Warm, Other (Umbilical surgical wound appears healed, is minimally tender without discharge, fluctuance or erythema) Lymphatic: NOT DONE Was a procedure done? Was a procedure done?: No GI differential Dx Differential Diagnosis: Appendicitis, Bowel Obstruction, Cholangitis, Diverticular disease, Gastritis/PUD, Gastroenteritis, Inflammatory BD, Ischemic Bowel, Pancreatitis, UTI, Dehydration, Electrolyte Imbalance, Food Poisoning, , Bacterial, Viral, Hypovolemia, Stress Ulcer, Kidney Stone X-Ray, Labs, Meds, VS Vital Signs Date Time Temp Pulse Resp B/P (MAP) Pulse Ox O2 Delivery O2 Flow Rate FiO2 09/28/24 23:38 69 19 137/73 09/28/24 22:43 63 18 98 Room Air* 0 21 09/28/24 22:43 98.0 66 18 139/84 (102) 98 98.0 09/28/24 19:27 98.1 74 16 154/90 (111) 98 98.1 Lab Test 09/29/24 00:59 09/28/24 20:00 09/28/24 19:45 Range/Units Urine Color Light-yellow Yellow Urine Clarity Clear Clear Urine pH 5.5 5.0-9.0 Urine Specific [place] 1.012 1.001-1.035 Urine Protein Negative Negative Urine Ketones Negative Negative Urine Blood Negative Negative /uL Urine Nitrite Negative Negative Urine Bilirubin Negative Negative Urine Urobilinogen Normal Negative mg/dL Urine Leukocyte Esterase 3+ Negative /uL Urine RBC 4 0 - 4 /hpf Urine WBC Clumps Present None Seen /hpf Urine Microscopic WBC 121 H 0-5 /HPF Urine Squamous Epithelial Cells Few <5 /hpf Urine Bacteria Few H None Seen /hpf Urine Mucus Few None Seen Urine Glucose Normal Normal mg/dL White Blood Count 5.1 4.4-10.8 10^3/uL Red Blood Count 4.66 4.0-5.20 10^6/uL Hemoglobin 12.9 12.2-16.2 g/dL Hematocrit 37.6 36.0-46.0 % Mean Corpuscular Volume 80.7 80.0-100.0 fL Mean Corpuscular Hemoglobin 27.6 L 28.0-32.0 pg Mean Corpuscular Hemoglobin Concent 34.2 32.0-36.0 g/dL Red Cell Distribution Width 15.0 H 11.8-14.3 % Platelet Count 189 140-450 10^3/uL Mean Platelet Volume 6.9 6.9-10.8 fL Neutrophils (%) (Auto) 47.3 37.0-80.0 % Lymphocytes (%) (Auto) 44.3 10.0-50.0 % Monocytes (%) (Auto) 5.7 0.0-12.0 % Eosinophils (%) (Auto) 1.9 0.0-7.0 % Basophils (%) (Auto) 0.8 0.0-2.0 % Neutrophils # (Auto) 2.4 1.6-8.6 10 ^3/uL Lymphocytes # (Auto) 2.3 0.4-5.4 10 ^3/uL Monocytes # (Auto) 0.3 0-1.3 10 ^3/uL Eosinophils # (Auto) 0.1 0-0.8 10 ^3/uL Basophils # (Auto) 0 0-0.2 10 ^3/uL Nucleated Red Blood Cells 0.1 % Sodium Level 142 136-145 mmol/L Potassium Level 3.5 3.5-5.1 mmol/L Chloride Level 107 98-107 mmol/L Carbon Dioxide Level 24 20-31 mmol/L Anion Gap 11 5-15 Blood Urea Nitrogen 9 9-23 mg/dL Creatinine 0.59 0.550-1.02 mg/dL Glomerular Filtration Rate Calc 109 >90 mL/min BUN/Creatinine Ratio 15.3 10.0-20.0 Serum Glucose 91 74-106 mg/dL Calcium Level 10.1 8.7-10.4 mg/dL Total Bilirubin 1.5 H 0.2-1.0 mg/dL Aspartate Amino Transferase (AST) 21 13-40 U/L Alanine Aminotransferase (ALT) 35 7-40 U/L Alkaline Phosphatase 71 46-116 U/L Troponin I High Sensitivity < 3 L </=34 ng/L Total Protein 7.1 5.7-8.2 g/dL Albumin 4.7 3.2-4.8 g/dL Lipase 36 12-53 U/L Beta HCG, Quantitative 3.4 1.5-4.2 mIU/mL Lactic Acid Level 0.9 0.4-2.0 mmol/L Current Medications Medications (Trade) Dose Ordered Sig/Mikey Route Start Time Stop Time Status Last Admin Morphine Sulfate 4 mg ONCE ONCE IV 09/28/24 19:45 09/28/24 19:46 DC 09/28/24 23:38 Ondansetron HCl (Zofran) 4 mg ONCE ONCE IV 09/28/24 19:45 09/28/24 19:46 DC 09/28/24 23:39 Pantoprazole Sodium (Protonix) 40 mg ONCE ONCE IV 09/28/24 19:45 09/28/24 19:46 DC 09/28/24 23:38 Ceftriaxone Sodium 50 ml @ 100 mls/hr ONCE ONCE IV 09/28/24 22:00 09/28/24 22:29 DC 09/28/24 23:34 Acetaminophen/ Hydrocodone Bitart ([place] 10/325MG Tab) 1 tab ONCE ONCE PO 09/29/24 01:00 09/29/24 01:01 DC 09/29/24 01:07 PROCEDURE(s): ABPL - CT AB PEL WO CON-NO ORAL OR IV REASON: upper abd pain rad to R flank/back, umbilical discharge ORDER NUMBER(s): [id number], ACCESSION NUMBER(s): [id number] EXAM: CT CT AB PEL WO CON-NO ORAL OR IV INDICATION: upper abd pain rad to R flank/back, umbilical discharge TECHNIQUE: Volumetric multidetector CT images of the abdomen and pelvis were obtained without contrast. All CT scans at this facility use dose modulation, iterative reconstruction, and/or weight based dosing when appropriate to reduce radiation dose to as low as reasonably achievable. COMPARISON: None FINDINGS: LOWER CHEST: The partially visualized lung bases are clear without a pleural effusion. The cardiac size is normal without pericardial effusion. Small amount of cystic lung change located within the posterior basilar right lower lobe. LIVER: Normal hepatic size without suspicious focal lesion. GALLBLADDER AND BILIARY TREE: Surgically absent. SPLEEN: Unremarkable. PANCREAS: Unremarkable. ADRENAL GLANDS: Unremarkable KIDNEYS: No hydronephrosis. No nephroureterolithiasis. No suspicious focal lesion. BLADDER: Unremarkable for the degree distention. REPRODUCTIVE ORGANS: Retroverted uterus. BOWEL/MESENTERY: Stomach is normal. No CT evidence of bowel obstruction. Khsi-wa-qkkqzoww stool burden. Medialization of the cecum. ASCITES: Absent LYMPHADENOPATHY: No pathologically enlarged lymph nodes by CT size criteria VASCULATURE: No aneurysmal dilatation. ABDOMINAL WALL: Inflammatory stranding at the level of the umbilicus without drainable fluid collection and imaging findings may be compatible with soft tissue infection at the level of the umbilicus. MUSCULOSKELETAL: No acute fracture or aggressive focal osseous lesion. Multifocal degenerative change of the visualized spine. IMPRESSION: 1. Inflammatory stranding at the level of the umbilicus without drainable fluid collection and imaging findings may be compatible with soft tissue infection. HS:Y X-Ray, Labs, Meds, VS Comment 49-year-old female with history of hypertension and prediabetes, status post cholecystectomy on 08/24/2024 presenting with abdominal pain and discharge from her umbilical wound Vitals remarkable for BP 154/90 Exam remarkable for epigastric, right upper quadrant and right flank tenderness to palpation. Soft tissue tenderness at the site of her umbilical surgical wound. CT abdomen and pelvis IMPRESSION: 1. Inflammatory stranding at the level of the umbilicus without drainable fluid collection and imaging findings may be compatible with soft tissue infection. CBC and CMP unremarkable, lipase normal, lactate normal, hCG negative, my abnormal consistent with UTI Patient treated with the following in the ED: morphine 4 mg IV, Zofran 4 mg, Protonix 40 mg IV, Rocephin 1 g IV On re-evaluation, patient states pain has improved. Vitals were stable. Hospitalization was considered, however patient had rapid improvement of symptoms with treatment in the ED, and I no longer feel hospitalization is necessary. Patient now appears stable for discharge with close outpatient follow-up with her primary physician. Rx clindamycin, Zofran, Bentyl, Protonix Time of 1ST Reevaluation: 02:22 Reevaluation 1ST: Improved Patient Education/Counseling: Diagnosis, Treatment, Need For Follow Up Family Education/Counseling: No Family Present Departure 1 Departure Time of Disposition: 21:45 Impression: Primary Impression: Surgical wound infection Additional Impressions: Abdominal pain Qualified Codes: R10.10 - Upper abdominal pain, unspecified Diarrhea Qualified Codes: R19.7 - Diarrhea, unspecified UTI (urinary tract infection) Qualified Codes: N39.0 - Urinary tract infection, site not specified Disposition: 01 HOME / SELF CARE / HOMELESS Condition: Stable Additional Instructions: Your blood tests were unremarkable. Your urine test was abnormal, consistent with a urinary tract infection. Your CT scan showed you have a soft tissue wound infection in the umbilical area. I have enclosed the report. I have prescribed antibiotics and pain medication. Follow-up with your primary doctor in 1-2 days. Return to ER for persistent or worsening symptoms. [place] [id number] Ph: [phone] DIAGNOSTIC IMAGING Diagnostic Imaging Report : [id number] Signed PATIENT: ALEXANDER PADILLA ACCT: [id number] UNIT: [id number] : 1975 LOC: ER ROOM / BED: / AGE / SEX: 49 / F ADM STATUS: REG ER SERVICE 38 ORDERING PHYSICIAN: WERNER DEVRIES MD PROCEDURE(s): ABPL - CT AB PEL WO CON-NO ORAL OR IV REASON: upper abd pain rad to R flank/back, umbilical discharge ORDER NUMBER(s): [id number], ACCESSION NUMBER(s): [id number] EXAM: CT CT AB PEL WO CON-NO ORAL OR IV INDICATION: upper abd pain rad to R flank/back, umbilical discharge TECHNIQUE: Volumetric multidetector CT images of the abdomen and pelvis were obtained without contrast. All CT scans at this facility use dose modulation, iterative reconstruction, and/or weight based dosing when appropriate to reduce radiation dose to as low as reasonably achievable. COMPARISON: None FINDINGS: LOWER CHEST: The partially visualized lung bases are clear without a pleural effusion. The cardiac size is normal without pericardial effusion. Small amount of cystic lung change located within the posterior basilar right lower lobe. LIVER: Normal hepatic size without suspicious focal lesion. GALLBLADDER AND BILIARY TREE: Surgically absent. SPLEEN: Unremarkable. PANCREAS: Unremarkable. ADRENAL GLANDS: Unremarkable KIDNEYS: No hydronephrosis. No nephroureterolithiasis. No suspicious focal lesion. BLADDER: Unremarkable for the degree distention. REPRODUCTIVE ORGANS: Retroverted uterus. BOWEL/MESENTERY: Stomach is normal. No CT evidence of bowel obstruction. Ngni-ql-[id number] stool burden. Medialization of the cecum. ASCITES: Absent LYMPHADENOPATHY: No pathologically enlarged lymph nodes by CT size criteria VASCULATURE: No aneurysmal dilatation. ABDOMINAL WALL: Inflammatory stranding at the level of the umbilicus without drainable fluid collection and imaging findings may be compatible with soft tissue infection at the level of the umbilicus. MUSCULOSKELETAL: No acute fracture or aggressive focal osseous lesion. Multifocal degenerative change of the visualized spine. IMPRESSION: 1. Inflammatory stranding at the level of the umbilicus without drainable fluid collection and imaging findings may be compatible with soft tissue infection. HS:Y e-Prescriptions Ondansetron Odt 4MG Tab (ZOFRAN PO) 4 Mg Tb 4 MG PO TID PRN, #30 TAB prn n/v ODT TAB-DISSOLVE IN MOUTH, THEN SWALLOW Prov: WERNER DEVRIES MD 09/29/24 Hydrocodone-Acetaminophen (Hydrocodone Bitartrate/AC 5-325 mg) 1 Tab Tab 1 TAB PO Q6HP PRN, #20 TAB prn pain Prov: WERNER DEVRIES MD 09/29/24 Sulfamethoxazole W/Trimethopri (Bactrim Ds Tablet) 1 Tab Tb 1 TAB PO BID for 10 Days, #20 TAB Prov: WERNER DEVRIES MD 09/29/24 Cephalexin Monohydrate (Cephalexin) 500 Mg Cap 1 CAP PO QID for 10 Days, #40 CAP Prov: WERNER DEVRIES MD 09/29/24 Discharged With: Relative Critical Care Note Critical Care Time?: No Stability Stability form required: No Heart Score Heart Score: Heart Score Response (Comments) Value History N/A 0 EKG N/A 0 Age N/A 0 Risk Factors N/A 0 Troponin N/A 0 Total 0 WERNER DEVRIES MD Sep 28, 2024 21:49
[2024-09-28 22:43] VITALS: PULSE 63; RESP 18; O2SAT 98
[2024-09-28] MEDS: cefTRIAXone 1GM/50ML D5W 50 ML IV ONE (23:34)
[2024-09-28] MEDS: MORPHINE SULFATE 4 MG/ML SYR/VIAL IV ONE (23:38)
[2024-09-28] MEDS: PANTOPRAZOLE 40 MG/10 ML VIAL INJ IV ONE (23:38)
[2024-09-28] MEDS: ONDANSETRON HCL 4 MG/2 ML VIAL IV ONE (23:39)
[2024-09-29] MEDS ORDERED: MORPHINE SULFATE 4 MG/ML SYR/VIAL IV ONE (01:00)
[2024-09-29] MEDS: HYDROcodone-ACET 10/325MG TAB PO ONE (01:07)
[2024-09-29 01:14] LABS: Urine Bacteria FEW /hpf (None Seen); Urine Blood Negative /uL (Negative); Urine Clarity Clear (Clear); Urine Color Light-Yellow (Yellow); Urine Mucus FEW (None Seen); Urine Protein, UAD Negative (Negative); Urine Specific Gravity 1.012 (1.001-1.035); Urine Squamous Epithelial Cell FEW /hpf (<5); Urine Urobilinogen Normal (Negative); Urine WBC 121 /HPF (0-5); Urine WBC Clumps PRESENT /hpf (None Seen); Urine pH 5.5 (5.0-9.0)
[2024-09-29] MEDS ORDERED: CEPH500C PO (02:25)
[2024-09-29] MEDS ORDERED: ZOFR4T PO (02:25)
[2024-09-29] MEDS ORDERED: BACDST PO (02:25)
[2024-09-29] MEDS ORDERED: HYDR-4902 PO (02:25)
[2024-09-29 03:00] VITALS: TEMP 97.4; O2SAT 98
[2024-09-29 03:04] VITALS: BP 124/55; PULSE 60; RESP 16
== END 2024-09-29 03:00 | disposition home or self-care (01) ==
LOC: ER 19:07
DX: T81.41XA Infection following a procedure, superficial incisional surgical site, initial encounter (principal); N39.0 Urinary tract infection, site not specified; R19.7 Diarrhea, unspecified; I10 Essential (primary) hypertension; R73.09 Other abnormal glucose; Z79.899 Other long term (current) drug therapy; Z90.49 Acquired absence of other specified parts of digestive tract; Y83.8 Other surgical procedures as the cause of abnormal reaction of the patient, or of later complication, without mention of misadventure at the time of the procedure
CPT/HCPCS: 36415; 74176; 80053; 81001; 83605; 83690; 84484; 84702; 85025; 87040; 96365; 96366; 96375; 99285; J0696; J2270; J2405; J2470

== ENCOUNTER 2025-01-25 09:25 | Day surgery (SDC) | payer MEDICAID ==
[~2025-01-25] VITALS: Ht 157.5 cm; Wt 69.4 kg
[~2025-01-25 09:25] MED LIST changes: +BACDST PO; +CEPH500C PO; +HYDR-4902 PO; +ZOFR4T PO
[2025-01-25 09:35] VITALS: BP 138/74; PULSE 49; RESP 18; TEMP 97.4; O2SAT 100
[2025-01-25] MEDS ORDERED: ceFAZolin 2 GM/D5W50ml 50 ML IV ONE (09:48)
[2025-01-25] MEDS ORDERED: SODIUM CHLORIDE LOCK 10 ML ONE (09:56)
[2025-01-25] MEDS ORDERED: PROPOFOL 10 MG/ML 20 ML IV ONE (09:56)
[2025-01-25] MEDS ORDERED: KETAMINE 50mg/ML 1ml syringe ONE (09:56)
[2025-01-25] MEDS ORDERED: MIDAZOLAM HCL 2MG/2ML 2ml VIAL (1mg/ml) ONE (09:56)
[2025-01-25] MEDS ORDERED: HYDROmorphone HCL 2 MG/ML VL/or syr ONE (09:56)
[2025-01-25] MEDS ORDERED: fentaNYL CITRATE 100 MCG/2 ML VL ONE (09:56)
[2025-01-25] MEDS ORDERED: ONDANSETRON HCL 4 MG/2 ML VIAL ONE (09:56)
[2025-01-25] MEDS ORDERED: LIDOCAINE 1% INJ PF 5ML AMP ONE (09:56)
[2025-01-25] MEDS ORDERED: KETOROLAC TROMETH 30 MG/ML 1ML VIAL IV ONE (10:30)
[2025-01-25] MEDS ORDERED: HYDROmorphone HCL 2 MG/ML VL/or syr IV PRN ×2 (10:30)
[2025-01-25] MEDS ORDERED: MORPHINE SULFATE 4 MG/ML SYR/VIAL IV PRN (10:30)
[2025-01-25] MEDS ORDERED: MORPHINE SULFATE INJ 2 MG/ml SYRG IV PRN (10:30)
[2025-01-25] MEDS ORDERED: METOCLOPRAMIDE HCL 5MG/ml INJ 2ml VIAL IV ONE (10:30)
[2025-01-25] MEDS: BUPIVACAINE 0.5% MPF INJ 30ML SDV IJ ONE (12:56)
--- NOTE | 2025-01-25 13:12 | DVHOP2 ---
Operative Report - 2 Report Details Date: 01/25/25 Preop Diagnosis: Right knee lateral meniscus tear Postop Diagnosis: Right knee lateral meniscus tear with grade 4 chondromalacia lateral tibial plateau Surgeon: Rufina Bryant MD Hand Coremaker: Florence To, Physician Hand Coremaker Anesthesiologist: Dr Haney Anesthesia: General Implant: MenixDuo x1 Consent: The patient was informed of the risks and benefits of the procedure. These include but are not limited to complications of anesthesia, postoperative infection, incomplete relief of symptoms, recurrence of symptoms, damage to blood vessels, nerves and tendons, deep venous thrombosis, pulmonary embolism and possible need for repeat surgery in the future. Complications: None Estimated Blood Loss: Less than 5 mL Indications for Surgery: The patient is a 50-year-old female who presented to the clinic with a history of knee pain. Clinical and radiological evaluation demonstrated lateral meniscus tear. Nonoperative and operative management options were discussed. Surgery in the form of knee arthroscopy with meniscus repair versus meniscectomy was discussed as she had failed thorough nonoperative management. Benefits, risks and treatment alternatives were discussed. Specific complications of the surgery were also discussed. Name of Procedure Performed Right knee arthroscopy with lateral meniscus repair and chondroplasty of the lateral tibial plateau Procedure Details Procedure Details: The patient was identified in the preoperative holding area and the surgical site was marked. The consent was verified. The patient was brought into the operating room and placed supine on the operating table. General anesthesia was administered. A tourniquet was applied over the proximal thigh. All the bony prominences were appropriately padded. The knee was positioned appropriately. The extremity was now prepped and draped in the usual sterile manner. A timeout was called out to confirm the identity of the patient, the nature of surgery, the site of surgery, the availability of implants and x-rays and allergies to medications. A standard anterolateral portal was established. A 30 degree scope was inserted. A standard anteromedial portal was established, a probe was inserted and the findings are as follows 1. Complex lateral meniscus tear with a radial component and absent tissue 2. Intact ACL and PCL 3. Intact medial compartment cartilage 4. Grade 4 chondromalacia lateral tibial plateau 5. Intact patellofemoral joint with normal bio kinematics The lateral meniscus tear was explored. This was a radial tear with a poor quality tissue remaining. Insert off doing a subtotal/total meniscectomy, I decided to try and approximate the flaps as much as possible. An all-inside technique was used for this purpose. Once suture device was inserted on the posterior flap and one on the anterior flap and the knotless mechanism was activated for excellent approximation. The previous device pulled out and was removed uneventfully. Irrigation was given. Chondroplasty of the tibial plateau was performed with the help of a shaver. This was a full-thickness cartilage defect. The skin incisions were closed with 3-0 Monocryl and the sterile dressing was applied. The knee was placed in the hinged [id number] brace at -10-70. Plan: To remain toe-touch weight-bearing for six weeks, range of motion as tolerated. Follow up in two weeks Condition Good Disposition Home RUFINA BRYANT MD Jan 25, 2025 13:12
== END 2025-01-25 13:15 | disposition home or self-care (01) ==
LOC: SUR 09:25
PROVIDERS: ATTEND Orthopaedic Surgery Sports Medicine
DX: S83.272A Complex tear of lateral meniscus, current injury, left knee, initial encounter (principal); M94.261 Chondromalacia, right knee; X58.XXXA Exposure to other specified factors, initial encounter; Y93.89 Activity, other specified; Y92.89 Other specified places as the place of occurrence of the external cause; Y99.8 Other external cause status; Z98.890 Other specified postprocedural states
CPT/HCPCS: 29882; J0169; J0690; J1171; J2250; J2405; J2704; J3010; J3490